=== PATIENT | female | born 1950 | race Caucasian/White ===

== ENCOUNTER 2018-03-23 14:11 | Emergency (ER) | payer OTHER, SELFPAY ==
[2018-03-23 14:19] VITALS: BP 150/68; PULSE 88; RESP 18; TEMP 36.8; O2SAT 97
--- NOTE | 2018-03-23 14:29 | DI.RAD_ITS ---
SYMPTOMS/DIAGNOSIS: LATERAL ANKLE PAIN AFTER FALL LEFT ANKLE: There is no evidence of a fracture or dislocation.
--- NOTE | 2018-03-23 14:30 | W.ED.GENAD ---
Discharge Plan Disposition Patient Disposition: HOME Condition: Stable Discharge Details Chief Complaint: GenMedical Clinical Impression: Left ankle sprain Primary Care Provider: ASHLEY,LOCAL ED Provider: Loy Salvador Home Meds and New Rx's Prescriptions: Continue simvastatin 80 mg Tablet 80 mg PO QPM RF: 0 folic acid 400 mcg Tablet 1 tab PO DAILY RF: 0 levothyroxine 25 mcg Tablet 25 mcg PO DAILY RF: 0 alendronate 35 mg Tablet 35 mg PO QWEEK RF: 0 calcium carbonate [Calcium 500] 500 mg calcium (1,250 mg) Tablet 500 mg PO DAILY RF: 0 ascorbic acid (vitamin C) [Vitamin C] 500 mg Tablet 500 mg PO DAILY RF: 0 cyanocobalamin (vitamin B-12) [Vitamin B-12] 1,000 mcg/mL Solution 1,000 mcg IM QMONTH RF: 0 vitamin E 400 unit Capsule 400 unit PO DAILY RF: 0 cholecalciferol (vitamin D3) [Vitamin D3] 1,000 unit Capsule 1,000 unit PO DAILY RF: 0 Discharge Instructions Instructions: Ankle Sprain (ED), RICE Therapy (ED) Additional Instructions: Follow-up with orthopedist if not improving over the next 2 weeks otherwise slowly advance activity as tolerated. She may continue to take [id number] pain medication as needed for discomfort. Referrals: Phil Junior MD [ [facility] STAFF PHYSICIAN] - Ruben Mathur MD [ [facility] STAFF PHYSICIAN] - Medical Decision Making MDM Narrative Medical decision making narrative: Patient presenting to the emergency department status post fall approximately 4 hours ago with left lateral ankle pain. Initially patient was able to ambulate with no discomfort but as time is gone she is unable to bear any weight on her left lower extremity. physical exam shows tenderness just inferior to the medial malleolus so I highly suspect mild to moderate ankle sprain but given nonweightbearing I do feel that radiological imaging is important to rule out of acute fracture. Patient was offered pain control but at this point denied any need for medication. Radiological imaging was reviewed and shows no acute fracture. Patient placed in walking boot due to level of discomfort with movement. Patient encouraged to rest ice compression elevation of the extremity. To ambulate the patient in the emergency department patient was unable to bear weight so patient was placed upon the crutches. Patient to follow-up with orthopedist if not improving over the next 2 weeks. Patient states that [id number] pain medication is sufficient for pain control. After discussion of diagnosis and plan of care patient states no further needs, questions, or concerns at this time. Patient was encouraged to resume weightbearing activities in 3 days if not able to weight-bear all progress patient to call orthopedist. HPI - General Adult General Mode of arrival: ambulatory (Nonweightbearing left). Date/Time Provider Initiated Documentation: 03/23/18 14:19. Limitations to Documentation: no limitations. Information obtained by: patient. History of Present Illness 68 year old F presents to the emergency department with the chief complaint of Ankle pain, described as moderate, with intensity rated at 7. Quality is described as aching, and is localized to the lower extremity. Patient reports no radiation. Patient started experiencing this hour(s) (4) and it has been constant. No relieving factors improve symptom(s), Movement worsens symptoms . Patient notes no other symptoms.. Patient did receive the following treatments prior to arrival, none Related Data Home Medications Medication Instructions Recorded Confirmed alendronate 35 mg PO QWEEK 03/23/18 03/23/18 ascorbic acid (vitamin C) [Vitamin 500 mg PO DAILY 03/23/18 03/23/18 C] calcium carbonate [Calcium 500] 500 mg PO DAILY 03/23/18 03/23/18 cholecalciferol (vitamin D3) 1,000 unit PO DAILY 03/23/18 03/23/18 [Vitamin D3] cyanocobalamin (vitamin B-12) 1,000 mcg IM QMONTH 03/23/18 03/23/18 [Vitamin B-12] folic acid 1 tab PO DAILY 03/23/18 03/23/18 levothyroxine 25 mcg PO DAILY 03/23/18 03/23/18 simvastatin 80 mg PO QPM 03/23/18 03/23/18 vitamin E 400 unit PO DAILY 03/23/18 03/23/18 Allergies Allergy/AdvReac Type Severity Reaction Status Date / Time Sulfa (Sulfonamide Allergy Swelling/Ed Unverified 03/23/18 14:47 Antibiotics) gus General Stated Complaint: GenMedical CHAD: 4 Review of Systems Constitutional Denies body ache(s), Denies chills and Denies fever(s) Cardiovascular Denies chest pain and Denies dyspnea Respiratory Denies dyspnea Musculoskeletal Reports as per HPI Integumentary/Breasts Denies erythema and Denies rash Neurologic Denies confusion and Denies sensory deficit Psychiatric Denies confusion PFSH Social History Smoking/Tobacco Use Status: Never Exam Const General: not in acute distress and not diaphoretic Orientation: alert, awake and oriented x3 Resp Effort & Inspection: normal respiratory effort and able to speak in complete sentences Cardio Rate: regular rate Rhythm: regular rhythm Neuro General: alert, awake, oriented x3, moves all extremities, normal light touch, pain and propioception and no focal motor deficits Extrem Left lower extremity: knee Details: normal to inspection; no tenderness, lower leg Details: normal to inspection; no tenderness and ankle Details: tenderness Location: of the lateral malleolus; not of the medial malleolus and not of the anterior talofibular ligament and no edema; no abrasions, no lacerations, no ecchymosis and no crepitus Course Vital Signs Temperature 36.8 C 03/23/18 14:19 Pulse 88 03/23/18 14:19 Respiratory Rate 18 03/23/18 14:19 Blood Pressure 150/68 H 03/23/18 14:19 Pulse Oximetry 97 03/23/18 14:19 Temperature 36.8 C 03/23/18 14:19 Pulse 88 03/23/18 14:19 Respiratory Rate 18 03/23/18 14:19 Blood Pressure 150/68 H 03/23/18 14:19 Pulse Oximetry 97 03/23/18 14:19
--- NOTE | 2018-03-23 14:34 | ED.GENADUL_ITS ---
Discharge Plan Disposition Patient Disposition: HOME Condition: Stable Discharge Details Chief Complaint: GenMedical Clinical Impression: Left ankle sprain Primary Care Provider: ASHLEY,LOCAL ED Provider: Loy Salvador Home Meds and New Rx's Prescriptions: Continue simvastatin 80 mg Tablet 80 mg PO QPM RF: 0 folic acid 400 mcg Tablet 1 tab PO DAILY RF: 0 levothyroxine 25 mcg Tablet 25 mcg PO DAILY RF: 0 alendronate 35 mg Tablet 35 mg PO QWEEK RF: 0 calcium carbonate [Calcium 500] 500 mg calcium (1,250 mg) Tablet 500 mg PO DAILY RF: 0 ascorbic acid (vitamin C) [Vitamin C] 500 mg Tablet 500 mg PO DAILY RF: 0 cyanocobalamin (vitamin B-12) [Vitamin B-12] 1,000 mcg/mL Solution 1,000 mcg IM QMONTH RF: 0 vitamin E 400 unit Capsule 400 unit PO DAILY RF: 0 cholecalciferol (vitamin D3) [Vitamin D3] 1,000 unit Capsule 1,000 unit PO DAILY RF: 0 Discharge Instructions Instructions: Ankle Sprain (ED), RICE Therapy (ED) Additional Instructions: Follow-up with orthopedist if not improving over the next 2 weeks otherwise slowly advance activity as tolerated. She may continue to take over-the- counter pain medication as needed for discomfort. Referrals: Phil Junior MD [ [facility] STAFF PHYSICIAN] - Ruben Mahtur MD [ [facility] STAFF PHYSICIAN] - Medical Decision Making MDM Narrative Medical decision making narrative: Patient presenting to the emergency department status post fall approximately 4 hours ago with left lateral ankle pain. Initially patient was able to ambulate with no discomfort but as time is gone she is unable to bear any weight on her left lower extremity. physical exam shows tenderness just inferior to the medial malleolus so I highly suspect mild to moderate ankle sprain but given nonweightbearing I do feel that radiological imaging is important to rule out of acute fracture. Patient was offered pain control but at this point denied any need for medication. Radiological imaging was reviewed and shows no acute fracture. Patient placed in walking boot due to level of discomfort with movement. Patient encouraged to rest ice compression elevation of the extremity. To ambulate the patient in the emergency department patient was unable to bear weight so patient was placed upon the crutches. Patient to follow-up with orthopedist if not improving over the next 2 weeks. Patient states that [id number] pain medication is sufficient for pain control. After discussion of diagnosis and plan of care patient states no further needs, questions, or concerns at this time. Patient was encouraged to resume weightbearing activities in 3 days if not able to weight-bear all progress patient to call orthopedist. HPI - General Adult General Mode of arrival: ambulatory (Nonweightbearing left) . Date/Time Provider Initiated Documentation: 03/23/18 14:19 . Limitations to Documentation: no limitations . Information obtained by: patient . History of Present Illness 68 year old F presents to the emergency department with the chief complaint of Ankle pain, described as moderate, with intensity rated at 7. Quality is described as aching, and is localized to the lower extremity. Patient reports no radiation. Patient started experiencing this hour(s) (4) and it has been constant. No relieving factors improve symptom(s), Movement worsens symptoms . Patient notes no other symptoms.. Patient did receive the following treatments prior to arrival, none Related Data Home Medications Medication Instructions Recorded Confirmed alendronate 35 mg PO QWEEK 03/23/18 03/23/18 ascorbic acid (vitamin C) [Vitamin 500 mg PO DAILY 03/23/18 03/23/18 C] calcium carbonate [Calcium 500] 500 mg PO DAILY 03/23/18 03/23/18 cholecalciferol (vitamin D3) 1,000 unit PO DAILY 03/23/18 03/23/18 [Vitamin D3] cyanocobalamin (vitamin B-12) 1,000 mcg IM QMONTH 03/23/18 03/23/18 [Vitamin B-12] folic acid 1 tab PO DAILY 03/23/18 03/23/18 levothyroxine 25 mcg PO DAILY 03/23/18 03/23/18 simvastatin 80 mg PO QPM 03/23/18 03/23/18 vitamin E 400 unit PO DAILY 03/23/18 03/23/18 Allergies Allergy/AdvReac Type Severity Reaction Status Date / Time Sulfa (Sulfonamide Allergy Swelling/Ed Unverified 03/23/18 14:47 Antibiotics) gus General Stated Complaint: GenMedical CHAD: 4 Review of Systems Constitutional Denies body ache(s), Denies chills and Denies fever(s) Cardiovascular Denies chest pain and Denies dyspnea Respiratory Denies dyspnea Musculoskeletal Reports as per HPI Integumentary/Breasts Denies erythema and Denies rash Neurologic Denies confusion and Denies sensory deficit Psychiatric Denies confusion PFSH Social History Smoking/Tobacco Use Status: Never Exam Const General: not in acute distress and not diaphoretic Orientation: alert, awake and oriented x3 Resp Effort & Inspection: normal respiratory effort and able to speak in complete sentences Cardio Rate: regular rate Rhythm: regular rhythm Neuro General: alert, awake, oriented x3, moves all extremities, normal light touch, pain and propioception and no focal motor deficits Extrem Left lower extremity: knee Details: normal to inspection; no tenderness, lower leg Details: normal to inspection; no tenderness and ankle Details: tenderness Location: of the lateral malleolus; not of the medial malleolus and not of the anterior talofibular ligament and no edema; no abrasions, no lacerations, no ecchymosis and no crepitus Course Vital Signs Temperature 36.8 C 03/23/18 14:19 Pulse 88 03/23/18 14:19 Respiratory Rate 18 03/23/18 14:19 Blood Pressure 150/68 H 03/23/18 14:19 Pulse Oximetry 97 03/23/18 14:19 Temperature 36.8 C 03/23/18 14:19 Pulse 88 03/23/18 14:19 Respiratory Rate 18 03/23/18 14:19 Blood Pressure 150/68 H 03/23/18 14:19 Pulse Oximetry 97 03/23/18 14:19
--- NOTE | 2018-03-23 15:55 | NUR.NOTE ---
Pt provided with walking boot and crutches. Provided training for both. Pt verbalizes understanding and is able to return demonstration. Ambulated around the department approx 25 feet with crutches Nursing Note:
[2018-03-23 16:13] VITALS: BP 138/80; PULSE 83; RESP 20; TEMP 36.8; O2SAT 99
== END 2018-03-23 16:10 | disposition home or self-care (01) ==
PROVIDERS: Emergency Provider Nurse Practitioner Family
DX: S93.402A Sprain of unspecified ligament of left ankle, initial encounter (principal); W01.0XXA Fall on same level from slipping, tripping and stumbling without subsequent striking against object, initial encounter
CPT/HCPCS: 29505; 99284; 73610; 99282; E0114; L4361

== ENCOUNTER 2021-02-02 16:31 | Outpatient (REF) | payer OTHER, SELFPAY ==
[2021-02-04 11:34] LABS: COVID-19 RT-PCR UVMMC Result Negative (Negative)
== END 2021-02-02 16:32 | disposition home or self-care (01) ==
LOC: LBN 16:31
PROVIDERS: Visit Provider Physician Assistant Medical
DX: Z20.822 Contact with and (suspected) exposure to COVID-19 (principal); J06.9 Acute upper respiratory infection, unspecified
CPT/HCPCS: U0003